=== PATIENT | female | born 1975 | race Hispanic/Latino ===

== ENCOUNTER 2017-02-24 19:33 | Emergency (ER) | payer SELFPAY ==
[2017-02-24] MEDS ORDERED: SODIUM CHLORIDE 0.9% 1000ML 2,000 ML IV ONE (19:41)
[2017-02-24] MEDS ORDERED: ONDANSETRON HCL 4 MG/2 ML VIAL ONE (19:52)
[2017-02-24] MEDS ORDERED: ACETAMINOPHEN 325 MG TAB ONE (19:53)
[2017-02-24 20:18] LABS: BASOPHILS % (AUTO) 0.6 % (0.0-5.0); HEMATOCRIT 35.9 % (36-48); LYMPHOCYTES % (AUTO) 26.3 % (21.0-51.0); MEAN CORPUSCULAR HEMOGLOBIN 28.6 pg (27.0-33.0); MEAN CORPUSCULAR HGB CONC 34.3 g/dL (32.0-36.0); MEAN CORPUSCULAR VOLUME 83.4 fL (79-99); MONOCYTES % (AUTO) 7.5 % (3.0-13.0); NEUTROPHILS % (AUTO) 65.6 % (40.0-77.0); NUCLEATED RED BLOOD CELLS 0.1 % (0.0-0.19); PLATELET COUNT (AUTO) 202 K/uL (130-400); RED BLOOD CELL COUNT(AUTO) 4.31 MIL/uL (4.00-5.50); RED CELL DISTRIBUTION WIDTH 14.2 % (11.0-15.5); WHITE BLOOD COUNT (AUTO) 4.5 K/uL (4.8-10.8)
[2017-02-24 20:19] LABS: APPEARANCE,URINE Clear (CLEAR); BILIRUBIN,URINE Negative (NEGATIVE); COLOR,URINE Yellow (YELLOW); GLUCOSE, URINE (UA) Negative (NEGATIVE); KETONES,URINE Trace mg/dL (NEGATIVE); LEUKOCYTE ESTERASE ,URINE Negative (NEGATIVE); NITRATE,URINE Negative (NEGATIVE); OCCULT BLOOD,URINE Negative (NEGATIVE); PH,URINE 7.5 (5.0-8.0); PROTEIN,URINE Negative (NEGATIVE)
[2017-02-24 20:27] LABS: CARBON DIOXIDE 21 mmol/L (21-32); CHLORIDE 99 mmol/L (101-111); CREATININE 0.7 mg/dL (0.5-1.5); GLOMERULAR FILTR. RATE CALC 99 mL/min (>60); GLUCOSE,RANDOM 101 mg/dL (70-105); POTASSIUM 3.5 mmol/L (3.5-5.1); SODIUM SERUM 133 mmol/L (136-145); UREA NITROGEN, BLOOD 11 mg/dL (7-18)
[2017-02-24 20:29] LABS: INR 1.02 (0.85-1.15); PARTIAL THROMBOPLASTIN TIME 28.9 SEC (26.3-35.5); PROTHROMBIN TIME 10.7 SEC (9.6-11.6)
[2017-02-24 20:41] LABS: ALANINE AMINOTRANSFERASE 27 U/L (12-78); ALBUMIN 3.4 g/dL (3.5-5.0); ASPARTATE AMINOTRANSFERASE 28 U/L (10-37); BILIRUBIN,TOTAL 0.3 mg/dL (0.2-1.0); CREATINE KINASE MB < 0.5 ng/mL (0.5-3.6); CREATINE KINASE, TOTAL 66 U/L (21-232); MYOGLOBIN 15 ng/mL (10-92); TOTAL PROTEIN, SERUM 7.4 g/dL (6.0-8.3); TROPONIN I < 0.04 ng/mL (0.00-0.06)
== END 2017-02-25 01:04 | disposition home or self-care (01) ==
LOC: EDH 19:33
DX: A08.4 Viral intestinal infection, unspecified (principal)
CPT/HCPCS: 36415; 71010; 80053; 81003; 82550; 82553; 83605; 83874; 84484; 85025; 85610; 85730; 87040 ×2; 87088; 87186; 87804 ×2; 93005; 96361; 96374; 99285; J2405; J7030

== ENCOUNTER 2018-03-27 10:29 | Emergency (ER) | payer OTHER ==
[2018-03-27 11:09] LABS: BASOPHILS % (AUTO) 1.5 % (0.0-5.0); EOSINOPHILS % (AUTO) 5.6 % (0.0-8.0); HEMATOCRIT 39.6 % (36-48); LYMPHOCYTES % (AUTO) 44.4 % (21.0-51.0); MEAN CORPUSCULAR HEMOGLOBIN 30.7 pg (27.0-33.0); MEAN CORPUSCULAR VOLUME 90.4 fL (79-99); MONOCYTES % (AUTO) 8.5 % (3.0-13.0); NUCLEATED RED BLOOD CELLS 0.1 % (0.0-0.19); PLATELET COUNT (AUTO) 287 K/uL (130-400); RED BLOOD CELL COUNT(AUTO) 4.38 MIL/uL (4.00-5.50); RED CELL DISTRIBUTION WIDTH 13.4 % (11.0-15.5); WHITE BLOOD COUNT (AUTO) 5.6 K/uL (4.8-10.8)
[2018-03-27 11:12] LABS: CREATININE 0.6 mg/dL (0.5-1.5); POTASSIUM 3.9 mmol/L (3.5-5.1)
[2018-03-27 11:16] LABS: ALBUMIN 3.9 g/dL (3.5-5.0); BILIRUBIN,TOTAL 0.4 mg/dL (0.2-1.0); TOTAL PROTEIN, SERUM 7.6 g/dL (6.0-8.3)
[2018-03-27 11:16] LABS: APPEARANCE,URINE Clear (CLEAR); BILIRUBIN,URINE Negative (NEGATIVE); COLOR,URINE Yellow (YELLOW); GLUCOSE, URINE (UA) Negative (NEGATIVE); KETONES,URINE Negative (NEGATIVE); LEUKOCYTE ESTERASE ,URINE Trace (NEGATIVE); NITRATE,URINE Negative (NEGATIVE); OCCULT BLOOD,URINE Negative (NEGATIVE); PH,URINE 5.5 (5.0-8.0); PROTEIN,URINE Negative (NEGATIVE); UROBILINOGEN,URINE 0.2 mg/dL (0.2-1.0)
[2018-03-27 11:46] LABS: HCG,QUAL RESULT NEGATIVE (NEGATIVE)
[2018-03-27 12:05] LABS: BACTERIA,URINE Rare /HPF (None Seen); RBC,URINE 0-1 /HPF (0-1); SQUAMOUS EPITHELIAL CELL,UR Rare /HPF (0-2)
== END 2018-03-27 12:27 | disposition home or self-care (01) ==
LOC: EDH 10:29
DX: N39.0 Urinary tract infection, site not specified (principal); R19.7 Diarrhea, unspecified
CPT/HCPCS: 36415; 76856; 80053; 81001; 81025; 82150; 83690; 85025

== ENCOUNTER 2018-05-07 23:06 | Emergency (ER) | payer OTHER ==
[2018-05-07 23:58] LABS: BASOPHILS % (AUTO) 0.7 % (0.0-5.0); EOSINOPHILS % (AUTO) 3.4 % (0.0-8.0); HEMATOCRIT 36.9 % (36-48); LYMPHOCYTES % (AUTO) 45.3 % (21.0-51.0); MEAN CORPUSCULAR HEMOGLOBIN 30.7 pg (27.0-33.0); MEAN CORPUSCULAR VOLUME 90.3 fL (79-99); MONOCYTES % (AUTO) 6.5 % (3.0-13.0); NEUTROPHILS % (AUTO) 44.1 % (40.0-77.0); NUCLEATED RED BLOOD CELLS 0.1 % (0.0-0.19); PLATELET COUNT (AUTO) 304 K/uL (130-400); RED BLOOD CELL COUNT(AUTO) 4.09 MIL/uL (4.00-5.50); RED CELL DISTRIBUTION WIDTH 12.8 % (11.0-15.5); WHITE BLOOD COUNT (AUTO) 7.5 K/uL (4.8-10.8)
[2018-05-08 00:06] LABS: CREATININE 0.7 mg/dL (0.5-1.5); POTASSIUM 3.5 mmol/L (3.5-5.1)
[2018-05-08 00:11] LABS: ALBUMIN 3.7 g/dL (3.5-5.0); BILIRUBIN,TOTAL 0.2 mg/dL (0.2-1.0); TOTAL PROTEIN, SERUM 7.3 g/dL (6.0-8.3)
[2018-05-08 00:38] LABS: B-TYPE NATRIURETIC PEPTIDE 36 pg/mL (0-100)
[2018-05-08 00:41] LABS: INR 0.97 (0.85-1.15); PARTIAL THROMBOPLASTIN TIME 27.7 SEC (26.3-35.5); PROTHROMBIN TIME 10.2 SEC (9.6-11.6)
== END 2018-05-08 03:11 | disposition home or self-care (01) ==
LOC: EDH 23:06
DX: R07.89 Other chest pain (principal); R11.0 Nausea; Z98.890 Other specified postprocedural states; Z72.0 Tobacco use
CPT/HCPCS: 36415; 71045; 80053; 83880; 84484; 85025; 85610; 85730; 93005

== ENCOUNTER 2018-06-05 07:39 | Emergency (ER) | payer SELFPAY | END 2018-06-05 08:42 | disposition home or self-care (01) | LOC: EDH 07:39 | DX: J09.X2 Influenza due to identified novel influenza A virus with other respiratory manifestations (principal); Z98.51 Tubal ligation status; Z98.890 Other specified postprocedural states; Z72.0 Tobacco use ==

== ENCOUNTER 2022-02-19 00:43 | Emergency (ER) | payer OTHER ==
[~2022-02-19] VITALS: Ht 152.4 cm; Wt 62.1 kg
[2022-02-19] MEDS ORDERED: IBUPROFEN 800 MG TAB PO ONE (01:30)
[2022-02-19 01:49] LABS: BASOPHILS % (AUTO) 0.6 % (0.0-5.0); EOSINOPHILS % (AUTO) 3.6 % (0.0-8.0); LYMPHOCYTES % (AUTO) 51.7 % (21.0-51.0); MEAN CORPUSCULAR HEMOGLOBIN 30.3 pg (27.0-33.0); MEAN CORPUSCULAR HGB CONC 34.1 g/dL (32.0-36.0); MEAN CORPUSCULAR VOLUME 88.8 fL (79-99); MONOCYTES % (AUTO) 8.9 % (3.0-13.0); PLATELET COUNT (AUTO) 257 K/uL (130-400); RED BLOOD CELL COUNT(AUTO) 4.39 MIL/uL (4.00-5.50); RED CELL DISTRIBUTION WIDTH 12.9 % (11.0-15.5); WHITE BLOOD COUNT (AUTO) 8.4 K/uL (4.8-10.8)
[2022-02-19 02:01] LABS: BILIRUBIN,URINE NEGATIVE (NEGATIVE); COLOR,URINE COLORLESS (YELLOW); GLUCOSE, URINE (UA) NEGATIVE (NEGATIVE); KETONES,URINE NEGATIVE (NEGATIVE); LEUKOCYTE ESTERASE ,URINE NEGATIVE Leu/uL (NEGATIVE); NITRATE,URINE NEGATIVE (NEGATIVE); OCCULT BLOOD,URINE NEGATIVE (NEGATIVE); PROTEIN,URINE NEGATIVE (NEGATIVE); UROBILINOGEN,URINE 0.2 mg/dL (0.2-1.0)
[2022-02-19 02:03] LABS: APPEARANCE,URINE CLEAR (CLEAR)
[2022-02-19 02:06] LABS: CREATININE 0.7 mg/dL (0.5-1.5); POTASSIUM 3.9 mmol/L (3.5-5.1)
[2022-02-19 02:16] LABS: ALBUMIN 3.9 g/dL (3.5-5.0); TOTAL PROTEIN, SERUM 7.3 g/dL (6.0-8.3)
[2022-02-19] MEDS ORDERED: IBUP-1493 PO (04:23)
[2022-02-19 05:00] VITALS: BP 105/62
== END 2022-02-19 05:11 | disposition home or self-care (01) ==
LOC: EDH 00:43
DX: R10.2 Pelvic and perineal pain (principal); Z98.890 Other specified postprocedural states
CPT/HCPCS: 36415; 76856; 80053; 81003; 83690; 84702; 85025

== ENCOUNTER 2022-07-30 23:38 | Emergency (ER) | payer OTHER ==
[~2022-07-30] VITALS: Ht 152.4 cm; Wt 64.9 kg
[~2022-07-30 23:38] MED LIST: IBUP-1493 PO
[2022-07-31] MEDS ORDERED: DIAZEPAM 5 MG/ML 2 ML SYG IVP ONE (01:30)
[2022-07-31] MEDS ORDERED: FAMOTIDINE 20MG VIAL IV ONE (01:30)
[2022-07-31] MEDS ORDERED: KETOROLAC 30MG VIAL (30MG/ML) IVP ONE (01:30)
[2022-07-31] MEDS ORDERED: METOCLOPRAMIDE 10 MG/2 ML VIAL IVP ONE (01:30)
[2022-07-31 01:32] LABS: BASOPHILS % (AUTO) 0.5 % (0.0-5.0); EOSINOPHILS % (AUTO) 5.5 % (0.0-8.0); HEMATOCRIT 38.3 % (36-48); LYMPHOCYTES % (AUTO) 49.8 % (21.0-51.0); MEAN CORPUSCULAR HEMOGLOBIN 30.4 pg (27.0-33.0); MEAN CORPUSCULAR HGB CONC 34.2 g/dL (32.0-36.0); MEAN CORPUSCULAR VOLUME 88.9 fL (79-99); MONOCYTES % (AUTO) 9.6 % (3.0-13.0); NEUTROPHILS % (AUTO) 34.4 % (40.0-77.0); PLATELET COUNT (AUTO) 272 K/uL (130-400); RED BLOOD CELL COUNT(AUTO) 4.31 MIL/uL (4.00-5.50); RED CELL DISTRIBUTION WIDTH 11.9 % (11.0-15.5); WHITE BLOOD COUNT (AUTO) 5.6 K/uL (4.8-10.8)
[2022-07-31 01:41] LABS: CREATININE 0.6 mg/dL (0.5-1.5); POTASSIUM 3.6 mmol/L (3.5-5.1)
[2022-07-31 01:56] LABS: THYROID STIMULATING HORMONE 2.16 uIU/mL (0.36-3.74)
[2022-07-31] MEDS ORDERED: MELO-106 PO (03:18)
[2022-07-31 03:41] VITALS: BP 124/68
== END 2022-07-31 03:28 | disposition home or self-care (01) ==
LOC: EDH 23:38
DX: M62.838 Other muscle spasm (principal); M54.12 Radiculopathy, cervical region; M79.641 Pain in right hand; M79.642 Pain in left hand; F17.200 Nicotine dependence, unspecified, uncomplicated; Z98.890 Other specified postprocedural states; Z88.6 Allergy status to analgesic agent
CPT/HCPCS: 99284; 96374; 96375; 84443; 82550; 83735; 80048; 84703; 85025; 36415; 72050; J3490; J3360; J1885

== ENCOUNTER 2023-10-10 22:47 | Emergency (ER) | payer BC ==
[~2023-10-10] VITALS: Ht 152.4 cm; Wt 64.9 kg
[~2023-10-10 22:47] MED LIST changes: +MELO-106 PO
[2023-10-10 23:56] LABS: BASOPHILS # (AUTO) 0.06 K/uL (0.00-0.20); BASOPHILS % (AUTO) 0.8 % (0.0-5.0); EOSINOPHILS # (AUTO) 0.29 K/uL (0.00-0.70); HEMATOCRIT 35.1 % (36-48); IMMATURE GRANULOCYTE ABSOLUTE 0.02 K/uL (0-1); LYMPHOCYTES # (AUTO) 3.9 K/uL (1.0-4.8); LYMPHOCYTES % (AUTO) 53.3 % (21.0-51.0); MEAN CORPUSCULAR HGB CONC 34.8 g/dL (32.0-36.0); MEAN CORPUSCULAR VOLUME 89.3 fL (79-99); MONOCYTES # (AUTO) 0.7 K/uL (0.1-1.0); MONOCYTES % (AUTO) 9.1 % (3.0-13.0); NEUTROPHILS # (AUTO) 2.3 K/uL (1.8-7.7); NEUTROPHILS % (AUTO) 32.5 % (40.0-77.0); PLATELET COUNT (AUTO) 297 K/uL (130-400); RED BLOOD CELL COUNT(AUTO) 3.93 MIL/uL (4.00-5.50); RED CELL DISTRIBUTION WIDTH 12.7 % (11.0-15.5); WHITE BLOOD COUNT (AUTO) 7.2 K/uL (4.8-10.8)
[2023-10-11] MEDS: ONDANSETRON 4MG INJ IVP ONE (00:28)
[2023-10-11] MEDS: acetaMINOPHEN 500 MG TABLET PO ONE (00:28)
[2023-10-11 00:45] LABS: ADD UA MICROSCOPIC NO; APPEARANCE,URINE CLEAR (CLEAR); BILIRUBIN,URINE NEGATIVE (NEGATIVE); COLOR,URINE COLORLESS (YELLOW); GLUCOSE, URINE (UA) NEGATIVE (NEGATIVE); KETONES,URINE NEGATIVE (NEGATIVE); LEUKOCYTE ESTERASE ,URINE NEGATIVE Leu/uL (NEGATIVE); NITRATE,URINE NEGATIVE (NEGATIVE); OCCULT BLOOD,URINE NEGATIVE (NEGATIVE); PH,URINE 5.5 (5.0-8.0); PROTEIN,URINE NEGATIVE (NEGATIVE); UROBILINOGEN,URINE 0.2 mg/dL (0.2-1.0)
[2023-10-11 01:11] LABS: BILIRUBIN,DIRECT 0.1 mg/dL (0.0-0.3); BILIRUBIN,TOTAL 0.4 mg/dL (0.2-1.0); CREATININE 0.7 mg/dL (0.5-1.0); POTASSIUM 3.5 mmol/L (3.5-5.1); TOTAL PROTEIN, SERUM 7.5 g/dL (6.0-8.3)
[2023-10-11] MEDS ORDERED: CYCL10TA16 PO (02:45)
[2023-10-11] MEDS ORDERED: IBUP-2070 PO (02:45)
[2023-10-11 03:01] VITALS: BP 120/65; PULSE 74; RESP 16; O2SAT 98
== END 2023-10-11 03:04 | disposition home or self-care (01) ==
LOC: EDH 22:47
DX: M79.601 Pain in right arm (principal); R07.89 Other chest pain; R51.9 Headache, unspecified; F17.200 Nicotine dependence, unspecified, uncomplicated; Z04.9 Encounter for examination and observation for unspecified reason; Z79.899 Other long term (current) drug therapy
CPT/HCPCS: 99284; 71045; 80076; 83735; 84484; 80048; 84703; 85025; 81003; 36415; 73060; 93005; 96374; 70450; J2405

== ENCOUNTER → 2024-12-14 | Emergency (ER) | payer SELFPAY ==
[~2024-12-14] VITALS: Ht 152.4 cm; Wt 66.2 kg
[~2024-12-14] MED LIST changes: +CYCL10TA16 PO; +CYCLOBENZAPRINE HCL 10 MG TABLET PO ONE; +IBUP-1492 PO
[2024-12-14 22:21] VITALS: BP 125/78; PULSE 59; RESP 20; TEMP 97.3
--- NOTE | 2024-12-14 23:01 | EKG ---
[facility] Test Date: 2024-12-14 Test Time: 22:56:10 Pat Name: ERIK MIX Department: ED Room: Gender: F [employer]: [id number] : 1975 Requested By: MICHI MCBRIDE Order Number: [id number] Reading MD: Justin Brito Measurements Intervals [place] Rate: 49 P: 42 [place]: 157 QRS: 59 QRSD: 68 T: 69 QT: 410 QTc: 372 Interpretive Statements Sinus bradycardia Compared to ECG 10/10/2023 23:33:03 Sinus rhythm no longer present Electronically Signed On 12-16-2024 16:32:04 CDT by Justin Brito Please click the below link to view image of tracing.
--- NOTE | 2024-12-14 23:13 | ERN ---
ED Note History of Present Illness Stated Complaint: C/O PAIN TO RT BREAST X 2 WKS Chief Complaint: Breast Problem Time Seen by MD: 22:22 Time Seen by Midlevel: 22:22 Dictation: The patient is a 49-year-old female with no past medical history who presents to the emergency department with complaints of right breast pain onset two weeks ago. Patient denies any trauma, denies any wounds. Patient reports that pain radiates to her right shoulder and right arm. Patient has been seen here multiple times for similar reasons of her right arm pain and shoulder. She reports she had an accident in the past with chest caused her to have pain to the area. Patient denies any fevers or denies any discharge from breast. Allergies: Coded Allergies: No Known Allergies (Unverified Allergy, Unknown, 02/19/22) Home Meds Active Scripts Cyclobenzaprine HCl (Flexeril) 10 Mg Tab, 10 MG PO TID for muscle sstiffness, #14 TAB 0 Refills Prov:JAYDA MCBRIDE MD 10/11/23 Ibuprofen (Ibuprofen) 600 Mg Tablet, 600 MG PO Q6H PRN for PAIN, #15 TAB Prov:JAYDA MCBRIDE MD 10/11/23 Meloxicam (Meloxicam) 7.5 Mg Tablet, 7.5 MG PO DAILY, #30 TAB 2 Refills Prov:IBRAHIMA ARANDA Sr., MD 07/31/22 Ibuprofen (Motrin/Advil) 800 Mg Tab, 800 MG PO TID, #30 TAB Prov:TREY SMITH MD 02/19/22 Past Medical History Past Medical History: No Pertinent History Surgical History: Unknown Family History: HTN Social History: Smokers, ETOH, Lives with family RN Note Reviewed/Agreed w/PFSH: Yes Review of System Dictation Constitutional: Negative for fever,chills, and weight loss Eyes: Negative for injury, pain,redness, and discharge ENT: Negative for injury,pain or swelling Cardiovascular: Negative for chest pain, palpitations, and edema positive for right breast pain Respiratory: Negative for shortness of breath, cough, and wheezing, Abdomen/GI: Negative for abdominal pain, nausea, vomiting, diarrhea, and constipation Back: Negative for injury and pain : Negative for injury, bleeding and discharge MS/Extremity: Negative for injury and deformity Skin: Negative for rash, and discoloration Neuro: Negative for headache, weakness, numbness, tingling, and seizure Psych: Negative for suicide ideation, homicidal ideation, and hallucinations Initial Vital Sign VS Vital Signs Date Time Temp Pulse Resp B/P (MAP) Pulse Ox O2 Delivery O2 Flow Rate FiO2 12/14/24 22:21 97.3 59 20 125/78 99 Room Air Physical Exam Dictation Vital Signs reviewed General Appearance: Alert, oriented x 3, no acute distress, well developed, nourished. Head and Face: non-traumatic. Eyes: PERRL, pink conjunctivas, eyelid no trauma, anterior chamber with arcus senilis. Ears: Pinnas intact and no signs of trauma or erythema ear canals clear and no discharge TM no erythema Nose: No discharge, no bleeding. Oropharynx: Mouth normal, tongue pink. pharynx clear,no erythema, tonsils no exudates, no abscesses noted, mucous membrane moist Neck: Supple, non-tender, no thyromegaly, no masses, no JVD, no bruits Breast: No masses noted no erythema, no wounds, no nipple discharge Chest:No tenderness, no crepitus, no paradoxical movement, no retractions Lungs:Clear, well-ventilated, symmetric, no rales, no wheezing, no rhonchi, no stridor, good breath sounds bilaterally Heart: Regular rate, regular rhythm, no murmur, no gallops Vascular: no peripheral edema, Abdomen: Soft, positive bowel sounds, nondistended, no guarding, nontender, no rebound, no masses no hepatomegaly, no splenomegaly, no Mancera's sign, no hernias. Rectal: Deferred Genital: Deferred Neurological: Normal speech, motor function intact, sensory function intact Musculoskeletal: Neck nontender, full range of motion, back nontender, full range of motion, Extremities: nontender, full range of motion Skin: Color pink, dry, no turgor, no rash, no lacerations, no abrasions, no contusions. Lymphatic: Deferred Results (Laboratory/Radiology) Labs Reviewed?: Yes EKG: (+) rhythm (Sinus rhythm) EKG Comment: Date:12/14/2024 Time: Ventricular rate:88 HI interval:165 QRS duration:80 QT/QTc:380/461 EKG interpretation: Sinus rhythm Reviewed by ED Attending no STEMI ED Course ED Course Orders Procedure Category Date Status Time Cyclobenzaprine Hcl PHA 12/14/24 Complete (Cyclobenzaprine Hcl 23:00 12 Lead Ekg Tracing- EKG 12/14/24 Complete Technical 22:51 Chest 1vw RAD 12/14/24 Resulted 22:51 Current Medications Medications (Trade) Dose Ordered Sig/Sundar Route PRN Reason Start Time Stop Time Status Last Admin Dose Admin Cyclobenzaprine HCl (Cyclobenzaprine HCl) 10 mg ONCE ONCE PO 12/14/24 23:00 12/14/24 23:01 DC Vital Signs Date Time Temp Pulse Resp B/P (MAP) Pulse Ox O2 Delivery O2 Flow Rate FiO2 12/14/24 22:21 97.3 59 20 125/78 99 Room Air Medical Decision Making MDM The patient is a 49-year-old female with no past medical history who presents to the emergency department with complaints of right breast pain onset two weeks ago. Patient denies any trauma, denies any wounds. Patient reports that pain radiates to her right shoulder and right arm. Patient has been seen here multiple times for similar reasons of her right arm pain and shoulder. She reports she had an accident in the past with chest caused her to have pain to the area. Patient denies any fevers or denies any discharge from breast. Chest x-ray showed no acute pathology. Patient eloped from ER before medication administration. Patient otherwise in no acute distress, nontoxic appearance Differential diagnosis: Cellulitis, musculoskeletal pain, breast cyst Need for hospitalization: Patient does not meet criteria for hospitalization. There are no social concerns with this patient. DX & DISP Disposition: Other(Comment) (Eloped) Departure Condition: Stable Referrals: LORRAINE LOPEZ MD (PCP) I have reviewed the case, and I agree with, Diagnosis and Plan MICHI MCBRIDE [facility] Dec 14, 2024 23:13
--- NOTE | 2024-12-15 00:48 | NUR ---
PATIENT NOT IN ED LOBBY WHEN CALLED
--- NOTE | 2024-12-15 00:55 | HMCIMG ---
EXAM: CR Chest, 1 view CLINICAL HISTORY: Chest pain. COMPARISON: None provided. FINDINGS: The lungs show no infiltrates or other acute findings. No pleural effusion or pneumothorax. The cardiomediastinal silhouette is within normal limits. No acute osseous abnormality. IMPRESSION: No acute cardiopulmonary process is evident. /[place]
--- NOTE | 2024-12-15 01:27 | NUR ---
CALLED FOR PT IN LOBBY; NO RESPONSE; PT NOT FOUND IN LOBBY.
== END ==
LOC: EDH 22:20
DX: N64.4 Mastodynia (principal); F17.200 Nicotine dependence, unspecified, uncomplicated; Z79.1 Long term (current) use of non-steroidal anti-inflammatories (NSAID); Z53.29 Procedure and treatment not carried out because of patient's decision for other reasons
CPT/HCPCS: 71045; 93005; 99283